=== PATIENT | male | born 1950 | race Caucasian/White ===

== ENCOUNTER 2024-10-29 16:00 | Emergency (ER) | payer OTHER ==
[~2024-10-29] VITALS: Ht 175.3 cm; Wt 79.4 kg
[2024-10-29 17:03] VITALS: BP 154/89; TEMP 98.6; O2SAT 95
== END 2024-10-29 17:04 | disposition home or self-care (01) ==
LOC: ER 16:09
DX: G30.9 Alzheimer's disease, unspecified (principal); F02.818 Dementia in other diseases classified elsewhere, unspecified severity, with other behavioral disturbance